=== PATIENT | female | born 1960 | race Caucasian/White ===

== ENCOUNTER → 2017-11-01 | Outpatient (CLI) | payer BC, OTHER ==
--- NOTE | 2017-11-14 12:26 | RAD ---
DATE: 11/01/2017 EXAM: Bilateral digital mammography HISTORY: Routine screening COMPARISON: 11/25/2013 This study was interpreted with the benefit of Computerized Aided Detection (CAD). The breast parenchyma is heterogeneously dense, which could reduce sensitivity of mammography. Breast parenchyma level C. FINDINGS: No new or enlarging breast densities are seen. Minimal benign type calcification is present. No suspicious microcalcifications are evident. IMPRESSION: Stable mammograms without evidence of malignancy. BI-RADS CATEGORY: 2 BENIGN FINDING(S) RECOMMENDED FOLLOW-UP: 12M 12 MONTH FOLLOW-UP PQRS compliance statement: Patient information was entered into a reminder system with a target due date for the next mammogram. Mammography is a sensitive method for finding small breast cancers, but it does not detect them all and is not a substitute for careful clinical examination. A negative mammogram does not negate a clinically suspicious finding and should not result in delay in biopsying a clinically suspicious abnormality. "Our facility is accredited by the [employer] Mamm[employer]."
== END | disposition home or self-care (01) ==
LOC: MAMMO 12:31
PROVIDERS: ATTEND Nurse Practitioner Family
DX: Z12.31 Encounter for screening mammogram for malignant neoplasm of breast (principal)
CPT/HCPCS: 77063; 77067

== ENCOUNTER → 2019-05-20 | Outpatient (CLI) | payer OTHER ==
--- NOTE | 2019-05-20 16:07 | RAD ---
DATE: 05/20/2019. EXAM: DIGITAL SCREEN BILAT W/CAD. HISTORY: Routine mammographic screening. COMPARISON: 11/01/2017. This study was interpreted with the benefit of Computerized Aided Detection (CAD). FINDINGS: Breast Density: HETERO The breast parenchyma is heterogenously dense, which could reduce sensitivity of mammography. Breast parenchyma level C.. Scattered calcifications are benign. A few small nodules have stable correlates. There are no suspicious masses, microcalcifications or architectural distortion. The parenchymal pattern is stable. BI-RADS CATEGORY: 2 BENIGN FINDING(S). RECOMMENDED FOLLOW-UP: 12M 12 MONTH FOLLOW-UP. PQRS compliance statement: Patient information was entered into a reminder system with a target due date 05/20/2020 for the next mammogram. Mammography is a sensitive method for finding small breast cancers, but it does not detect them all and is not a substitute for careful clinical examination. A negative mammogram does not negate a clinically suspicious finding and should not result in delay in biopsying a clinically suspicious abnormality. "Our facility is accredited by the [employer] Mammography [employer]."
== END | disposition home or self-care (01) ==
LOC: MAMMO 14:24
PROVIDERS: ATTEND Nurse Practitioner Family
DX: Z12.31 Encounter for screening mammogram for malignant neoplasm of breast (principal); N64.89 Other specified disorders of breast; N63.0 Unspecified lump in unspecified breast
CPT/HCPCS: 77067

== ENCOUNTER → 2021-06-13 | Outpatient (CLI) | payer OTHER ==
--- NOTE | 2021-06-13 16:33 | RAD ---
BILATERAL SCREENING MAMMOGRAM History: Routine screening. Comparison: Most recently on 05/20/2019. Technique: Routine 2D and 3D tomosynthesis digital mammogram views were obtained bilaterally. Interpr etation was assisted with the use of computer-aided detection. Findings: Breast Tissue Density B : There are scattered areas of fibroglandular density. There are no dominant masses, suspicious microcalcifications, or architectural distortion. IMPRESSION: No mammographic evidence of malignancy. Recommend routine screening mammography in one year. BI-RADS category 1: Negative. Patient information is entered into the reminder system with a target due date for the next screening mammogram. "Our facility is accredited by the [employer] Mammography [employer]." Electronically signed by: CHANCE WONG MD (06/13/2021 4:30 PM) [id number]
== END ==
LOC: MAMMO 14:56
PROVIDERS: ATTEND Nurse Practitioner Primary Care
DX: Z12.31 Encounter for screening mammogram for malignant neoplasm of breast (principal)
CPT/HCPCS: 77063; 77067